=== PATIENT | female | born 1975 | race Hispanic/Latino ===

== ENCOUNTER 2016-07-19 05:51 | Day surgery (SDC) | payer SELFPAY ==
[~2016-07-19] VITALS: Ht 160 cm; Wt 82.5 kg
[2016-07-19] VITALS (17 sets, daily range): BP systolic 102–140; BP diastolic 62–167; PULSE 91–132; RESP 13–21; O2SAT 96–98
[~2016-07-19 05:51] MED LIST: CHOL200025 PO; Lactated Ringer's 1,000 ML IV SCH; METH10TA4 PO; RANI150C4 PO
[2016-07-19] MEDS ORDERED: Succinylcholine Chloride 20 mg/mL 5 mL Inj ONE (05:52)
[2016-07-19] MEDS ORDERED: Labetalol 5 mg/mL 20 mL Inj ONE (05:52)
[2016-07-19] MEDS ORDERED: Dexamethasone 4 mg/mL Inj ONE (05:52)
[2016-07-19] MEDS ORDERED: Glycopyrrolate 0.2 MG/ML 1mL Inj ONE (05:52)
[2016-07-19] MEDS ORDERED: Neostigmine 1 mg/mL 10 mL Inj ONE (05:52)
[2016-07-19] MEDS ORDERED: Propofol 10,000 mCg/mL 20 mL Inj ONE (05:52)
[2016-07-19] MEDS ORDERED: Ondansetron 2 mg/mL 2 mL Inj ONE (05:52)
[2016-07-19] MEDS ORDERED: fentaNYL-PF 50 mCg/mL 2 mL Inj ONE (05:52)
[2016-07-19] MEDS ORDERED: Phenazopyridine 97.5 mg Tablet PO SCH (06:00)
[2016-07-19] MEDS ORDERED: Lactated Ringer's 1,000 ML IV ONE ×3 (06:38→11:06)
[2016-07-19] MEDS ORDERED: MetoCLOpramide 5 mg/mL 2 mL Inj IVPUSH PRN ×2 (06:45→11:25)
[2016-07-19] MEDS ORDERED: Phenylephrine 10,000 mCg/mL Inj IVPUSH PRN (06:45)
[2016-07-19] MEDS ORDERED: EPHEDrine Sulfate 50 mg/mL Inj IVPUSH PRN (06:45)
[2016-07-19] MEDS ORDERED: Lactated Ringer's 500 ML IV PRN (06:45)
[2016-07-19] MEDS ORDERED: Lactated Ringer's 1,000 ML IV SCH ×2 (06:45→11:24)
[2016-07-19] MEDS ORDERED: Dexamethasone 4 mg/mL Inj IVPUSH PRN (06:45)
[2016-07-19] MEDS ORDERED: Ondansetron 2 mg/mL 2 mL Inj IVPUSH PRN ×2 (06:45→11:25)
--- NOTE | 2016-07-19 07:04 | PCM.HPANE ---
Patient Data Surgeon Admitting Provider: Attending Provider:Dejan Weeks MD Primary Care Physician:Ayde Posada MD Other Provider:Rachel Sharp Anesthesia Reason for Visit Uterovag Prolapse,Cystocele,Stress Incontinence Ht/WT & BMI Height (Feet): 4 Height (Inches): 9 Weight (Kilograms): 75.29 Body Mass Index 35.00 Allergies Coded Allergies: No Known Allergies (Unverified , 07/14/16) Past Anesthesia History Anesthesia History: Denies:: Anesthesia Reactions Diabetes History Hx Diabetes?: No MRSA MRSA: No Medications Home Meds Incl Beta Shiva: No Reported Medications Ranitidine 150 Mg [id number] Mg PO BID Ref 0 07/14/16 Cholecalciferol (Vitamin D3) (Vitamin D3)2,000 Unit Tablet2,000 Unit PO DAILY 07/14/16 Methimazole 10 Mg [id number] Mg PO TID 07/14/16 History History of ENT Problems?: No HEENT History: Denies:: Abnormal Airway Cataracts Difficult Intubation Dysphagia Glaucoma Hearing Problem Sinus Problem TMJ Denture Type: None Teeth Condition: Within Normal Limits Hx of Heart Problems?: No Cardiovascular History: Denies:: AICD Abdominal Aortic Aneurism Atrial Fibrillation Cardiac Surgery Chest Pain Congestive Heart Failure Coronary Artery Disease Edema Heart Murmur Hypertension Irregular Heartbeat Pacemaker Peripheral Vascular Rheumatic Fever Thrombophlebitis Valvular Heart Disease Hx of Respiratory Problem?: No Respiratory History: Denies:: Asthma COPD Chest Surgery Cough Dyspnea Emphysema Hemoptysis Oxygen Administration Pneumonia Pulmonary Embolism Tuberculosis Use of C-PAP Machine Use of Inhalers / NEBS Hx Neurologic Problems?: No Neurological History: Denies:: Alzheimer's Disease CVA Dementia Dizziness Headaches Multiple Sclerosis Parkinson's Disease Peripheral Neuropathy Seizures TIA Hx of GI Problems?: Yes Gastrointestinal History: Positive for:: Gastroesphageal Reflux Denies:: Cirrhosis Diverticulitis Gall Bladder Disease Gastrointestinal Bleeding Heartburn Hepatitis Hiatal Hernia Liver Disease Rectal Bleeding Hx of Problems?: Yes Genitourinary History: Denies:: HX of Hemodialysis Kidney Stones Urinary Tract Infection Female Hx: Denies:: Currently (hx tubal ligation) Problems with Breasts? Hx Musculoskeletal Problems?: No Musculoskeletal History: Denies:: Back Injury Degenerative Joint Fibromyalgia Joint Replacement Musculoskeletal Trauma Myasthenia Gravis Osteoarthritis Rheumatoid Arthritis Systemic Lupus Hx of Psycho/Social Problems?: No Psycho Social History: Denies:: Anxiety Bipolar Disorder Hx Depression Suicide Attempt Hx Surgeries?: Yes (LIH, tubal, c sections x 2) Hx Any Other Health Problems?: Yes Other History: Positive for:: Thyroid Disease Denies:: Cancer Hx Diabetes: No Hx Alcohol Use: NoHx Substance Use: NoHave You Smoked inLast 12 mo: No Stop/Bang P-Blood Pressure: treated: No B- Body Mass Index > 35 kg/m2: Yes A- Age over 50: No N- Neck Large Circumference: No G- Gender Male: No Risk Assessment Category Category 1A: Patient has history of documented sleep apnea, and HAS NOT received any narcotic, sedative or anesthesia administration during this stay. Category 1B: Patient has history of documented sleep apnea, and HAS received any narcotic , sedative or anesthesia administration during this stay Category 2: Patient has SUSPECTED Obstructive Sleep Apnea, and HAS received any narcotic , sedative or anesthesia administration during this stay. Category 3: Patient has SUSPECTED Obstructive Sleep Apnea and HAS NOT received narcotic, sedative or anesthesia administration during this stay. Category 4: Outpatient in Procedural Areas with known sleep apnea or who screen positive for High Risk via the STOP/BANG questionnaire. Exam Exam Vital Signs Vital Signs Date Time Temp Pulse Resp B/P Pulse Ox O2 Delivery O2 Flow Rate FiO2 07/19/16 06:38 36.3 108 20 140/ 96 Room Air General Appearance: Alert, Oriented X3, Cooperative, No Acute Distress HEENT/AIRWAY: MP 2 Lungs: Clear to Auscultation, Normal Air Movement Heart: Exam Unremarkable, Regular Rate/Rhythm, No Murmurs/Rubs/Gallops Meds/Labs/Diagnostics Admission Meds Current Medications Lactated Ringer's (Lr) 1,000 ml @ ud STK-MED ONCE IV Last administered on 07/19t 06:38; Start 07/19/16 at 06:38; Stop 07/19/16 at 06:39; Status DC Plan Impression Patient chart reviewed, patient interviewed and anesthestic plan with risks, benefits, and alternatives discussed, and informed consent obtained. NPO per Anesth. Guidelines: Yes ASA Physical Status: ASA2 Mod Systemic Disease Anesthetic Support Modalities: Hemodynamic Monitoring Anesthetic Plan: GA Bene/Risks/Altern/Consents: Yes HP Complete Prior to Induction: Yes Stu Polk MD Jul 19, 2016 07:04
[2016-07-19] MEDS: CeFAZolin Inj 2 GM in IV Premix 1 EACH IV SCH ×2 (07:34→15:07)
[2016-07-19] MEDS ORDERED: Sodium Chloride LOK Flush 10 mL Syringe XX ONE (08:06)
[2016-07-19] MEDS ORDERED: Gentamicin 40 mg/mL 2 mL Inj IRRIGATION ONE ×2 (08:06→09:23)
[2016-07-19] MEDS ORDERED: Lidocaine 1%-Epi 1:100,000 20 mL Inj INFILTRATE ONE (08:06)
[2016-07-19] MEDS ORDERED: 0.9% Sodium Chloride 10 mL Inj IV ONE (09:28)
[2016-07-19] MEDS ORDERED: Lidocaine 1%/Epi 1:100,000 30 mL MDV INFILTRATE ONE (09:28)
[2016-07-19] MEDS: Lactated Ringer's 1,000 ML IV SCH ×2 (09:56→15:07)
[2016-07-19] MEDS ORDERED: Alum-Mag Hydrox-Simeth 30 mL Suspension PO PRN (11:25)
[2016-07-19] MEDS ORDERED: diphenhydrAMINE 25 mg Capsule PO PRN (11:25)
--- NOTE | 2016-07-19 11:35 | PCM.ANEP1 ---
Post Anesthesia Phase 1 PACU Phase 1 Assessment Date of Service: Jul 19, 2016 Vital Signs Vital Signs Date Time Temp Pulse Resp B/P Pulse Ox O2 Delivery O2 Flow Rate FiO2 07/19/16 06:38 36.3 108 20 140/ 96 Room Air Anesthetic Administered: GA Level of Alertness: Awake, talking LEMON's with Equal Strength: Yes Pain: Yes Nausea or Vomiting: No Cardiovascular Function and Hy: Yes Oxygen Delivery: Simple Mask Lungs: Clear to Auscultation, Normal Air Movement Dermatome Level: Full Sensation Complications: No Follow up Care: No Patient Instructions Provided: Yes Stu Polk MD Jul 19, 2016 11:35
[2016-07-19] MEDS: fentaNYL-PF 50 mCg/mL 2 mL Inj IVPUSH PRN ×3 (11:43→13:20)
[2016-07-19] MEDS: HYDROmorphone 1 mg/mL Inj IVPUSH PRN ×3 (12:00→12:44)
--- NOTE | 2016-07-19 12:09 | PCM.SURGOP ---
Surgical Operative Report Date of Service: Jul 19, 2016 Pre Operative Diagnosis 1. POPQ stage 2 anterior vaginal prolapse 2. POOQ stage 2 atpical (Uterovaginal) prolapse 3. Urodynamic stress incontinence Post Operative Diagnosis 1. POPQ stage 2 uterine prolapse/enterocele 2. POPQ stage 2 cystocele 3. deficient pubocervical/pubovesical fascia 4. Urodynamic stress incontinence Procedure: 1. vaginal hysterectomy with bilateral salpingectomy 2. anterior repair with Xenform graft augmentation. 3. high uterosacral ligament vaginal vault suspension and enterocele repair and 4. TVT-obturator sling and cystoscopy Surgeon and Auto Body Repair Teacher: Surgeon: Dejan Weeks MD Assistants: Ayde Posada MD Indication for Procedure Her assessment to date includes: 1. Cystocele, midline N81.11 (618.01): 2. Uterovaginal prolapse, incomplete N81.2 (618.2): 3. Urodynamic stress incontinence The patient is a candidate for surgical prolapse management in the form of:. vaginal hysterectomy. with bilateral salpingectomy anterior repair with possible biologic graft augmentation. high uterosacral ligament vaginal vault suspension and enterocele repair and TVT-obturator sling. The patient signed the consent form. She agreed with the risks, benefits, and alternatives to surgery. The risks included but not limited to recurrence or persistence of prolapse, recurrence of persistence of incontinence, development of voiding dysfunction, development of urinary urgency, urgency incontinence, frequency, and need for intermittent self-catheterization or prolonged indwelling catheterization, injury to other organs including bladder, bowel, nerves or blood vessels. Need for blood transfusion, need for temporary colostomy or urinary stenting. Development of vaginal scarring, dyspareunia, defecatory dysfunction, recurring pain, hematoma formation, urinary tract infection, cellulitis, necrotizing fascitis, and medical risks including myocardial infarction, stroke or VTE. She also understood the FDA warnings associated with the use of vaginal mesh (dysparunia, vaginal erosion, erosion into bowel/bladder/urethra, requiring further surgery to correct these complications). Findings: see dictation Procedure Details SURGICAL TECHNIQUE: The patient was brought to the operating room and was placed under general anesthesia. She was prepped and draped in the normal fashion for vaginal surgery with the legs in Yellofin stirrups. She was given a dose of IV anceg intraoperatively. She also received 200 mg of oral pyridium in the preoperative area. 1. Vaginal Hysterectomy and bilateral salpingectomy: Lidocaine 0.5% with 1:200,000 of epinephrine was infiltrated pericervically. A pericervical incision was made with a scalpel. Anteriorly, the bladder was sharply dissected off the cervix. Posteriorly, the cul de sac was entered with Sharp dissection. The bowels were packed with a mini-laparotomy sponge. The uterosacral ligaments were bilaterally clamped, divided and then tied in a transfixion fashion with 0- vicryl suture. Anteriorly, the Uterovesical peritoneum was entered with sharp dissection and the bladder was retracted upward with a right-angle retractor. The uterus was normal in size. The uterine vessels with the utero- ovarian vessels were then clamped, and coagulated then cut with the LigOrtho-tag Impact system. The uterus and cervix was sent to pathology. The ovaries and tubes appeared normal. We left the ovaries intact. However she agreed to have a bilateral salpingectomy. The tubes were freed from their attachments using cautery, then clamped at their base and excised with scissors. The base was tied with 0-vicryl suture. The tubes were sent to pathology. Bleeding bilaterally along the pedicles were controlled with 2-0 Vicryl suture. There were no adhesions noted in the distal pelvis. 2. High uterosacral ligament vaginal vault suspension, cystoscopy and enterocele repair: Mini laparotomy sponges were packed to retract the bowel upwards. A pair of Allis clamps were placed along the intraperitoneal portions of the vagina at the 5 and 7 o'clock positions. Tension along these Allis clamps allowed for identification of the uterosacral ligaments bilaterally. A pair of 0 Vicryl sutures were passed around the uterosacral ligaments of the level of the ischial spine bilaterally, totalling 4. Cystoscopy was performed. The bladder was filled with 200 ml of D50 as the pyridium had not concentrated in the urine yet. While tension was placed along the uterosacral ligament sutures, spillage of urine was noted at both ureteric orifices. The bladder was emptied and rinsed with sterile saline. Next, two 3-0 Prolene sutures were placed transversely through the cul-de-sac peritoneum. This was performed while using a gloved finger in the rectum as to avoid penetrating the underlying rectal mucosa. Tying these sutures obliterated the enterocele. 3. Anterior colporrhaphy with Xenform graft augmentation: Lidocaine 0.5% with 1 /[id number] epinephrine was infiltrated along the anterior vaginal wall mucosa. A midline vertical incision was made through the anterior vaginal wall. The vaginal wall was dissected off the underlying pubocervical and pubovesical fascia. The dissection was extended laterally beyond the ischial pubic rami. It was noted that the pubocervical and pubovesical fascial tissues were deficient and thin. Bilateral paravaginal defects were identified. The cystocele was plicated 2 layers, the first layer with 2-0 Vicryl suture in interrupted fashion, the second layer with 2-0 Tycron suture in an interrupted fashion. A trapezoidal piece of Xenform graft was then incorporated atop the plicated area far laterally. The graft was secured to the obturator internus membrane. At the level of the bladder neck, an upside down triangular piece of graft was excised so that there was no over-support created along the level of the bladder neck. Apically , the graft was passed through the proximal uterosacral ligament sutures. A mild amount of excess anterior vaginal mucosa was excised. A small piece of gelfoam was placed in the cul-de- sac to achieve hemostasis in this area. The vault suspension sutures were then passed through the planned apex of the vagina. Two were placed through the anterior apex and the other two, through the posterior apex. The vagina was then reapproximated using 3-0 Vicryl suture in a running-locked fashion. The perineum was reapproximated using 2-0 Vicryl suture in an interrupted fashion. The skin was reapproximated using 3-0 Vicryl suture in a subcuticular fashion. The high uterosacral ligament vaginal vault suspension sutures were tied and this elevated the apex of the vagina high up into the hollow of the sacrum. A digital rectal exam revealed that the posterior segment was well supported, especially after apical suspension. 4. TVT-Obturator sling and cystoscopy. Lidocaine 0.5% with 1/551013 epinephrine was infiltrated along the anterior vaginal wall mucosa at the level of the mid urethra. Midline vertical incision was made at that level, 2 periurethral tunnels were created with Metzenbaum scissors. Two stab incisions were created at the skin at the groin at a level 2 cm superior to the external urethral meatus and 2 cm lateral to the fold created between the vulva and thigh. Goldman catheter had already been inserted. A butterfly guide was inserted into the right periurethral tunnel, a curved helical needle was inserted on top of the guide and rotated out to the ipsilateral skin incision. The same procedure was performed on the contralateral side. Next the Goldman catheter was removed. Cystoscopy was performed. There was no inadvertent penetration of the sling to the vagina, urethra or bladder. The bladder appeared normal. Both ureteric orifices were noted and brisk spillage of pyridium-stained urine was noted effluxing bilaterally. The plastic sheaths of the sling were removed. The bladder was filled with 300 mL of sterile water. Using the Crede maneuver, sling tension was appropriately adjusted. Also a thick right angle clamp was allowed to easily pass behind the sling so that the sling was placed in a tension-free manner. The sling ends were cut at the level of the skin. The skin was reapproximated using Mastisol, Steri-Strips and band-aids. The vagina was reapproximated using 3-0 Vicryl suture in a running fashion. The vagina was packed with KY-lubricated packing. An 16F indwelling goldman catheter was connected to straight drainage. The patient's hips were periodically deflexed during the case. There were no complications. The EBL was 350 ml. All sponges and instruments were accounted for. She was taken to the recovery room in stable condition. Complications There were no periprocedural complications identified. Surgical Specimen Removed: Yes Specimen sent to Pathology: Yes Surgical Specimen description: uterus, cervix, and tubes x 2 Anesthetic Plan: GA Grafts, Implants: Grafts-See Implant Record, Implants-See Implant Record Output, Estimated Blood Loss: 350 (ml) Blood Administration during langford: No Catheters: Urethral 2 Way Goldman Post Operative Plan overnight stay in bed as she requires a voiding trial in the am copies to: Ayde Posada MD; Dejan Weeks MD, William Andre Z MD Jul 19, 2016 12:09
--- NOTE | 2016-07-19 15:09 | NUR ---
Post op Arrived to [facility] room 1006 via stretcher at 14:10. Slightly drowsy, but awake and oriented. Family at bedside. Manager Web Application present. Complains of vague abd pain. Denies nausea. 2 bandaids and peripad CDI. Tachy 110s-120; HR was 108 preop. 500 cc bolus given in PACU per report. Oriented to room and call light.
[2016-07-19] MEDS: oxyCODONE-Acetamin 5-325 mg Tablet PO PRN ×2 (16:02→20:59)
--- NOTE | 2016-07-19 16:32 | NUR ---
Tachy HR 120-130. Face flushed. paged. Orders to increase methimazole dose, EKG, labs. Methimazole given, EKG done and results phoned to . Labs pending. Continue to monitor.
[2016-07-19] MEDS ORDERED: Acetaminophen IV 1,000 MG in IV Premix 1 EACH IV ONE (17:15)
[2016-07-19 17:41] LABS: BASOPHILS % (AUTO) 0.1 % (0-3); EOSINOPHILS % (AUTO) 0 % (0-5); MONOCYTES % (AUTO) 3.5 % (4-12); Mean Corpuscular Hemoglobin 25.4 pg (27.0-35.0); NEUTROPHILS % (AUTO) 87.1 % (40-74); Platelet Count 211 bil/L (150-400)
[2016-07-19] MEDS ORDERED: Benzocaine-Menthol Lozenge 2/Pkg PO PRN (19:00)
[2016-07-19] MEDS ORDERED: HYDROmorphone 1 mg/mL Inj IM ONE (19:10)
[2016-07-19] MEDS ORDERED: MeTOProlol 1 mg/mL 5 mL Inj IVPUSH ONE (19:30)
--- NOTE | 2016-07-19 19:32 | PCM.CHPMED ---
Subjective Date of Service: Jul 19, 2016 Provider requesting consult: Dejan Weeks MD Primary Physician: Admitting Physician: Primary Care Physician: Ayde Posada MD Attending Physician: Dejan Weeks MD Chief Complaint: Chief Complaint: Hypertension and tachycardia PMH Allergies: Coded Allergies: No Known Allergies (Unverified , 07/14/16) Social History Hx Alcohol Use: NoHx Substance Use: No Exam Vital Signs Vital Sign - Last Date Time Temp Pulse Resp B/P Pulse Ox O2 Delivery O2 Flow Rate FiO2 07/19/16 17:10 36.5 127 20 115/167 97 Nasal Cannula 2.00 Lab and Diagnostics Result Diagram: 07/19/16 1730 07/19/16 1730 Assessment & Plan Assessment HPI: Patient is a 41-year-old Kyrgyz-speaking female with a past medical history of hyperthyroidism and GERD who presented for surgery for Uterovag Prolapse,Cystocele,Stress Incontinence. However status post surgery the patient had an elevated blood pressure of 115/167 and a heart rate of 127. The patient generally takes methimazole 10 mg by mouth 3 times a day however was given 20 mg by mouth every [address] Weeks. At that time Dr. Weeks contacted the hospitalist team for consult. The patient's blood pressure is currently 123/80 with a heart rate of 131. Patient is currently diaphoretic and complaints of low back pain, vaginal pain, abdominal pain, and sore throat. Home medications: Methimazole 10 mg 3 by mouth times a day Ranitidine 150 mg by mouth twice a day Vitamin D3 2000 international units by mouth daily Allergies: None PMHx: Hyperthyroidism GERD SHx: Vaginal hysterectomy with bilateral salpingectomy (07/19/16) Anterior repair with Xenform graft augmentation. (07/19/16) High uterosacral ligament vaginal vault suspension and enterocele repair and Obturator sling and cystoscopy(07/19/16) Hernia surgery x 2 FHx: Family history of hypertension SocHx: Tobacco history: Patient denies Alcohol use: Patient denies Drug use: Patient denies ROS: A complete review of systems was performed or attempted to be performed. Please see HPI for pertinent positives, all other systems are negatives. Physical Exam: GEN: Patient was awake, alert, responding appropriately to questions, moderate distress HEENT: Pupils equal round and reactive to light, extraocular eye muscles intact , Neck soft supple, trachea midline, nomocephalic/atraumatic CV: +S1/S2, regular rate and rhythm, no murmurs auscultated Respiratory: CTAB, no wheezes, rales, rhonchi GI: +bowel sounds x4, soft, compressible, tender to palpation Muscular skeletal: Paraspinal hypertonicity on the right L1 to L5 EXT: no clubbing, cyanosis, edema Neuro: Cranial nerves II-XII grossly intact Psych: mood and affect were appropriate Assessment and Plan 41-year-old female with a past medical history of hyperthyroidism with hypertension and tachycardia Hyperthyroidism -Continue methimazole 10 mg 3 times a day -Follow up TSH and free T4-T3 -Consult endocrinology (Mandeep Uriarte) in the morning Hypertension controlled -Current blood pressure is 123/80 -Continue to monitor Tachycardia -Current heart rate is 131 -Control patient's pain IV Tylenol, Dilaudid 1 time dose, IV morphine -1 time dose of 5 mg of Lopressor Hyponatremia -Sodium is currently 132 -Stop lactated Ringer's and start normal saline at 125 an hour -Continue to monitor Pharyngitis (Mostly we secondary to intubation) -Cepacol throat lozenges -Continue oral hydration Code Status: Full code Disposition: Patient blood pressure is now currently controlled and there is thought that the patient's blood pressure was significantly elevated with an elevated tachycardia secondary to the patient's current hyperthyroidism. Patient's heart rate is still elevated we will give her a one-time dose of Lopressor however controlling the patient's pain will also help to bring the patient's heart rate down as well. Problems: Resuscitation Status: CPR: Attempt Resuscitation Time spent Greater than 45 minutes Angela Gilliland DO Jul 19, 2016 19:32
--- NOTE | 2016-07-19 19:49 | PCM.CHPMED ---
Subjective Date of Service: Jul 19, 2016 Provider requesting consult: Angela Gilliland DO Primary Physician: Admitting Physician: Primary Care Physician: Ayde Posada MD Attending Physician: Dejan Weeks MD Chief Complaint: Chief Complaint: Endocrinology Consult: Asked by Dr. Gilliland to evaluate this 41-year-old woman status post hysterectomy today with a history of hyperthyroidism. History of Present Illness: The patient is Prydein[place]-speaking and was interviewed with the assistance of Spanish-speaking family members. She presented today for elective hysterectomy , and is noted to be clinically and biochemically hyperthyroid. She reports a three-year history of hyperthyroidism. She does not know the etiology and did not recognize the name of Graves' disease. She has been treated medically with methimazole and a "heart medication" which may be propranolol. She states that her methimazole dose has been as low as 1 tablet per day (10 mg) and as high as 3 tablets per day. On review of systems she reports episodes of diaphoresis, palpitation over several months. She has hot and cold intolerance and equal measure. Her weight has been up and down but generally stable. She does not notice tremors. She denies symptomatic ophthalmopathy. She feels that her neck is swollen but does not experience dysphagia. Her bowels are regular. Currently she is in moderate discomfort at her postsurgical site. PMH Past Medical History # Hyperthyroidism # Dyspepsia or GERD # Uterine prolapse with urinary incontinence Hx Any Other Health Problems?: NoHx Diabetes: No Allergies: Coded Allergies: No Known Allergies (Unverified , 07/14/16) Family History Family History Hypertension, no thyroid disease. Social History Hx Alcohol Use: NoHx Substance Use: No Exam Vital Signs Vital Sign - Last Date Time Temp Pulse Resp B/P Pulse Ox O2 Delivery O2 Flow Rate FiO2 07/19/16 17:10 36.5 127 20 115/167 97 Nasal Cannula 2.00 General: middle-aged woman in mild distress HEENT: sclerae anicteric, oral mucosa moist, sclerae are moderately injected, no obvious proptosis Neck: no JVD; she is unable to sit up for proper thyroid exam but thyroid is bilaterally enlarged with a smooth texture; radiated murmur versus possible thyroid bruit Chest: clear to auscultation Cardiac: Hyperdynamic, tachycardic S1S2, II/ systolic murmur at LUSB Abdomen: BS diminished, tender in lower quadrants Extremities: No pitting pedal edema Skin: Plethoric and diaphoretic Neuro: A&O, cranial nerves symmetric, no lid lag or stare, motor strength 5/5, coordination normal, minimal tremor, reflexes are 2+ with accelerated relaxation Lab and Diagnostics Labs Thyroid function studies: 07/17/16 TSH 0.005 (0.45-4.5) 07/19/16 Free T4 2 0.8 (0.82-1.77) Result Diagram: 07/19/16 1730 07/19/16 1730 12-lead ECG 07/19/16 16:40 sinus tachycardia rate 125. Conduction intervals normal. Assessment & Plan Assessment Patient has long-standing hyperthyroidism, most likely Graves' disease. He is currently in a postoperative state with pain and possible fluid shifts, experiencing sinus tachycardia. This may be compounded by recent discontinuation of her beta alyse. She reports good compliance with methimazole 10 mg three times a day recently, which seems inconsistent with her very elevated T4 level. I suspect that recent medication compliance may have been imperfect, as hyperthyroidism is usually well controlled by methimazole 10 mg 3 times a day. Current clinical problem will be interpretation of her tachycardia with respect to fluid status versus hyperthyroidism. I believe she needs significant doses of propranolol. Her current dose of methimazole is maximal but will take several days, at minimum, to be effective. She has a stable blood pressure; hence thyroid storm is not in the differential. Tachycardia is sinus and there is no significant risk of arrhythmia and healthy younger patients with hyperthyroidism. Recommendations: #1. Propranolol 20 mg 4 times a day, increase to 40 mg 4 times a day for persistent tachycardia greater than 120 bpm #2. Continue methimazole 20 mg 3 times a day at present, likely to reduce this to 10 mg 3 times a day at time of discharge. #3. I will order a thyroid-stimulating immunoglobulin test. No need for other thyroid blood tests at this time. No need for ultrasound or nuclear scan at this time. #4. Refer to me at [facility] for follow-up after discharge to discuss long-term methimazole versus radioiodine treatment Thank you for this interesting and timely consult. I will continue to see the patient daily while she is admitted. Please contact me with any questions . Problems: VTE Mechanical Devices: Intermittant Pneumatic CD Resuscitation Status: CPR: Attempt Resuscitation Kamari Uriarte MD Jul 19, 2016 19:49
[2016-07-19] MEDS: 0.9% Sodium Chloride 1,000 ML IV SCH (20:01)
[2016-07-19 20:04] LABS: Magnesium 1.7 mg/dL (1.6-2.6)
[2016-07-19] MEDS ORDERED: Non-Formulary Medication (Ranitidine 150 MG) PO SCH (20:30)
--- NOTE | 2016-07-19 22:40 | NUR ---
TACHYCARDIA: Pt's pulse was still running 120-130s post op. Dr. Uriarte came in to see pt. new orders for Metoprolol 5 mg IV one time dose, given. Then Propranolol 20 mg po QID, all done as ordered. Pt's pulse is improving. Rate is 110 to 116 at rest. Pt. is on a Cont. pulse oxymetry. Also Pt. was given one time order of IV Dilaudid 1 mg, brought down pain for 12/10 to 07/10 Pt. states that she is feeling better now. Nausea is resolved with Reglan given by previous RN Maureen. Given 2 Percocet for pain 08/09, pt. tolerating well, brought down pain to 04/11. Santiago catheter draining to gravity orange colored urine. 2250 ml at this time, no blood clots seen. Pt. is A & O, taking po fluids and tolerating well. On going care.
[2016-07-20 00:24] VITALS: BP 114/74; PULSE 112; RESP 18; O2SAT 97
--- NOTE | 2016-07-20 03:29 | NUR ---
ITCHING: Pt. stated her back was very itchy after getting her Morphine for pain. Given 25 mg of IV Benadryl.
[2016-07-20] MEDS: 0.9% Sodium Chloride 1,000 ML IV SCH ×2 (04:24→11:35)
[2016-07-20 05:37] LABS: BASOPHILS % (AUTO) 0.1 % (0-3); EOSINOPHILS % (AUTO) 0.5 % (0-5); MONOCYTES % (AUTO) 11.4 % (4-12); Mean Corpuscular Hemoglobin 25.8 pg (27.0-35.0); Mean Corpuscular Volume 78.3 fL (81-100); NEUTROPHILS % (AUTO) 68.8 % (40-74); Platelet Count 214 bil/L (150-400)
[2016-07-20 05:51] VITALS: BP 106/68; PULSE 84; RESP 17; O2SAT 98
[2016-07-20] MEDS: oxyCODONE-Acetamin 5-325 mg Tablet PO PRN ×3 (06:04→18:00)
[2016-07-20 07:33] VITALS: BP 110/77; PULSE 82; RESP 17; O2SAT 97
[2016-07-20] MEDS ORDERED: Senna-Docusate 8.6-50 mg Tablet PO SCH (08:30)
[2016-07-20] MEDS ORDERED: Heparin 5,000 Unit/mL Inj SUBQ SCH (08:30)
--- NOTE | 2016-07-20 09:31 | PCM.PNSURG ---
Subjective Date of Service: Jul 20, 2016 Date of Service: Jul 20, 2016 Visit Information: Reason for Visit Uterovag Prolapse,Cystocele,Stress Incontinence Surgery/Surgery Date vaginal hysterectomy 07/19/16 Post-Op Day # 1 Subjective: AVSS Pt seen by hospitalist and endocrinology last pm due to sinus tachcardia and uncontrolled hyperthyroidism Pt started on B-alyse and doubled the dose of methimazole currently HR is stable (80's), BP stable, no fever, no signs of thyroid storm amulating tolerating po pain control ok Gastrointestinal: Good Appetite Pain Management: PO Objective Vital Sign- Last 8 Hours Date Time Temp Pulse Resp B/P Pulse Ox O2 Delivery O2 Flow Rate FiO2 07/20/16 07:33 37.3 82 17 110/77 97 Nasal Cannula 2.00 07/20/16 05:51 36.7 84 17 106/68 98 Nasal Cannula 2.00 07/20/16 05:07 Supplement Oxygen Intake and Output- Last 8 Hour 07/20/16 Cumulative From/Thru 07:00 07/14/16 12:23 - 07/20/16 05:51 Intake Total 3465 ml 7555 ml Output Total 3300 ml 4450 ml Balance 165 ml 3105 ml Intake Oral 1600 ml 2040 ml IV Total 1865 ml 5515 ml Output Urine Total 3250 ml 3700 ml Emesis 50 ml 50 ml Estimated Blood Loss 700 ml # Bowel Movements 0 0 General: Alert, Oriented X3, Cooperative Lungs: Clear to Auscultation Abdomen: Soft Catheters: Urethral 2 Way Goldman Result Diagram: 07/20/16 0453 07/20/16 0453 Assessment & Plan Impression 1, Uncontrolled hyperthyroidism 2. sinus tachycardia; now normal HR in 80's with use of beta alyse 3. Stable for discharge later today Problems: Plan voiding trial at 10 am discharge later today will need f/u with GP or endocrinology regarding further hyperthyroidism treatment f/u with Dr. Weeks in 2 wk (also 1 wk with his MA if home with goldman) Resuscitation Status: CPR: Attempt Resuscitation copies to: Dejan Weeks MD, William Andre Z MD Jul 20, 2016 09:31
--- NOTE | 2016-07-20 09:34 | PCM.DIGYN ---
Surgical Discharge Instruction Dates of Hospitalization Date of Hospital Admission outpatient in bed with overnight stay 07/19/16 to 07/20/16 Providers Admitting Physician: Primary Care Physician: Ayde Posada MD Attending Physician: Dejan Weeks MD Diagnosis at Time of Discharge Diagnosis at time of discharge 1. POPQ stage 2 uterine prolapse/enterocele 2. POPQ stage 2 cystocele 3. deficient pubocervical/pubovesical fascia 4. Urodynamic stress incontinence 5. Uncontrolled hyperthyroidism Post-operative diagnosis 1. POPQ stage 2 uterine prolapse/enterocele 2. POPQ stage 2 cystocele 3. deficient pubocervical/pubovesical fascia 4. Urodynamic stress incontinence Problems: Diet Discharge Diet: No restrictions Activity Discharge Activity-General: Restrict lifting to no greater than (10 lbs for 6 wk) Dressing and Incisional Care Dressing Care: Allow Steri Stripes to fall off Hygiene: May shower Follow Up Plan Follow-up appointment: Weeks ([address]eks; also f/u with his MA in 1 wk if home with goldman. She also needs to f/u with Dr. Uriarte the hourly shift manager in 2 wk) Call your provider for: Fever, Chills, Shortness of breath, Vomitting, Drainage at incision, Heavy vaginal bleeding, Wound redness, Increasing pain Dejan Weeks MD Jul 20, 2016 09:34
[2016-07-20] MEDS ORDERED: PROP80CA2 PO (09:52)
[2016-07-20 11:25] VITALS: BP 103/66; PULSE 89
[2016-07-20 12:40] VITALS: BP 106/64; PULSE 78; RESP 18; O2SAT 93
--- NOTE | 2016-07-20 18:25 | NUR ---
MD NOTIFICATION/DISCHARGE Care obtained from Maureen Ta at 1335. Percocet 2 tabs PO has been effective for pain control. Ibuprofen administered. She complained of nausea after taking her Ibuprofen without food. Zofran IV administered. No emesis noted. Patient made aware RE: Taking her meds with food. She verbalized understanding. Tolerating liquids PO and her diet well. No issues noted. Denies SOB. Patient passed her voiding trial per report from Maureen Ta RN. This afternoon patient had difficulty in voiding. PVR checked X 2= 637 and 847 ml noted. Bandaid dressing in her groin area is CDI. Taty pad has scant amount of blood noted. Dr. Weeks updated RE: Patients progress. Per protocol re-insert IFC and patient is cleared to D/C to home per Dr. Weeks. Per MD she is to follow up in the [place] office for a voiding trial in 1 week. Orders has been finalized in the computer. IV saline lock d/cd. IFC care and teaching was given to the patient and her . They both verbalized understanding. Discharge instructions, care notes and prescription was given to the patient and she verbalized understanding. Discharged to home with her and all her personal belongings. Tank Stave Assembler was at the bedside at all times during the catheter insertion and discharge. (Copy of D/C is in the chart).
--- NOTE | 2016-07-21 13:59 | PATH ---
SURGICAL PATHOLOGY Attending Physician:Dejan Weeks, CASE STATUS: Signed Out PATIENT NAME: GIOVANNI CHAWLA PID: [id number] : 1975 DATE COLLECTED:07/19/2016 21:11 SPECIMEN: 1: Uterus +/- tubes/ovaries, except neoplastic, prolapse 2: Fallopian Tube, Biopsy CLINICAL HISTORY: UTEROVAG PROLAPSE, CYSTOCELE, STRESS INCONTINENCE 1). UTERUS AND LEFT FALLOPIAN TUBE 2). RIGHT FALLOPIAN TUBE FINAL DIAGNOSIS: 1.UTERUS WITH LEFT FALLOPIAN TUBE (CLINICAL PROLAPSE): PROLIFERATIVE ENDOMETRIUM, NEGATIVE FOR ATYPIA. FALLOPIAN TUBE UNREMARKABLE. 2.RIGHT FALLOPIAN TUBE: NO SIGNIFICANT PATHOLOGIC CHANGE. ICD10 CODE N81.4 GROSS DESCRIPTION: The specimens are received in formalin, labeled with the patient's name, and sublabeled as the following: (1) uterus and left fallopian tube; (2) right fallopian tube. (1) The specimen consists of a uterus (103 g, 4.5 cm AP, 8.9 cm SI, 5.7cm ML) and a detached fimbriated fallopian tube (length-3.7 cm, diameter-0.6 cm). The ovaries and second fallopian tube are absent. The cervix (2.5 cm AP, 3.0 cm ML) has a vaginal cuff (up to 2.2 cm in depth), transverse os and patent endocervical canal. The endometrium (average thickness-0.2 cm) is gold-pink smooth and flat. The myometrium (thickness-2.0 cm) is gold and unremarkable. The serosa is gold smooth and shiny. The fallopian tube has dark brown smooth shiny serosa and a gold unremarkable lumen. Section code: (1A) anterior cervix; (1B-1C) posterior cervix, bisected and submitted SI; (1D, 1E) anterior endomyometrium; (1F, 1G) posterior endomyometrium; (1H) fallopian tube, serially sectioned, contact center representative; (1I) fimbria, bivalved, entirely submitted. (2) The specimen consists of a fimbriated fallopian tube segment (length-1.5 cm, diameter-0.5 cm). The serosa is dark brown smooth and shiny. The lumen is gold and unremarkable. Section code: (2A) fallopian tube, serially sectioned; (2B) fimbria, bivalved. Specimen entirely submitted. 07/20/16 MICRO DESCRIPTION: See diagnosis. ICD-9 CODES: CPT CODES: 1: 44652 2: 16246 Electronically Signed Out Oliver Reynolds MD [facility] [address], [place] [address] Technical component performed at [facility], [address], [place], [address]
--- NOTE | 2016-07-27 17:46 | PCM.PNMED ---
Subjective Date of Service Jul 20, 2016 Subjective Pt denies fevers, chills, pain is well controlled. no palpitations, dyspnea, or chest pain. Denies poor appetite. Exam Vital Signs Vital Sign - Last Date Time Temp Pulse Resp B/P Pulse Ox O2 Delivery O2 Flow Rate FiO2 07/20/16 07:33 37.3 82 17 110/77 97 Nasal Cannula 2.00 Intake and Output 07/19/16 07/19/16 07/20/16 Cumulative From/Thru 15:00 23:00 07:00 07/14/16 12:23 - 07/20/16 05:51 Intake Total 3650 ml 440 ml 3465 ml 7555 ml Output Total 1150 ml 0 ml 3300 ml 4450 ml Balance 2500 ml 440 ml 165 ml 3105 ml Intake Oral 440 ml 1600 ml 2040 ml IV Total 3650 ml 1865 ml 5515 ml Output Urine Total 450 ml 0 ml 3250 ml 3700 ml Emesis 50 ml 50 ml Estimated Blood Loss 700 ml 700 ml # Bowel Movements 0 0 Exam heart, lungs, ext, abd exam General: NAD, laying in bed, pleasant HEENT: NCAT Eyes: [place] conjunctivae. No ptosis Neck: No masses, trachea midline, no thyromegaly Lungs: CTA with normal respiratory effort, no crackles or wheezes CV: RRR, no murmurs/rubs/gallops, normal PMI GI: Soft, midly-tender with no hepatosplenomegaly MSK: no digital cyanosis Skin: Warm and dry. Psych: A&O X3, with appropriate affect Neuro: No focal deficits IVs and Medications Medications Reviewed: Medications were reviewed in detail Lab and Diagnostics Result Diagram: 07/20/16 0453 07/20/16 0453 Assessment & Plan Impression 1, Uncontrolled hyperthyroidism: Dr. Uriarte from Endocrinology was consulted, we appreciate his recommendations. He wants her back on her home methimazole plus propranolol 120 ER for discharge. 2. sinus tachycardia; now normal HR in 80's with use of beta alyse 3. Stable for discharge later today: communicated d/c meds and f/u with Dr. Uriarte to Dr. Weeks as he is the primary team doing the discharge. Patient wants a Mon appt in 2 weeks (he asked for a 2 week f/u) Problems: Plan voiding trial at 10 am discharge later today will need f/u with GP or endocrinology regarding further hyperthyroidism treatment f/u with Dr. Weeks in 2 wk (also 1 wk with his MA if home with goldman) Resuscitation Status: CPR: Attempt Resuscitation Pain Evaluation: Adequate Pain Control VTE Mechanical Devices: Intermittant Pneumatic CD Resuscitation Status: CPR: Attempt Resuscitation Nenita Riddle DO Jul 20, 2016 08:29
== END 2016-07-20 18:32 | disposition home or self-care (01) ==
LOC: SAS 05:51 → OSC 14:11 → SAS 07-20 18:32
PROVIDERS: ATTEND Obstetrics & Gynecology
PROC: 0UTC7ZZ Resection of Cervix, Via Natural or Artificial Opening (ICD-10-PCS; 2016-07-19)
PROC: 0UT77ZZ Resection of Bilateral Fallopian Tubes, Via Natural or Artificial Opening (ICD-10-PCS; 2016-07-19)
PROC: 0JUC0KZ Supplement of Pelvic Region Subcutaneous Tissue and Fascia with Nonautologous Tissue Substitute, Open Approach (ICD-10-PCS; 2016-07-19)
PROC: 0TSD0ZZ Reposition Urethra, Open Approach (ICD-10-PCS; 2016-07-19)
PROC: 0USG0ZZ Reposition Vagina, Open Approach (ICD-10-PCS; 2016-07-19)
PROC: 0UT97ZZ Resection of Uterus, Via Natural or Artificial Opening (ICD-10-PCS; principal; 2016-07-19 07:30)
DX: N81.2 Incomplete uterovaginal prolapse (principal); N81.11 Cystocele, midline; N39.3 Stress incontinence (female) (male); R39.14 Feeling of incomplete bladder emptying; I10 Essential (primary) hypertension; R00.0 Tachycardia, unspecified; K21.9 Gastro-esophageal reflux disease without esophagitis; Z87.440 Personal history of urinary (tract) infections; N30.30 Trigonitis without hematuria; E83.59 Other disorders of calcium metabolism; E05.90 Thyrotoxicosis, unspecified without thyrotoxic crisis or storm; E87.1 Hypo-osmolality and hyponatremia; J02.9 Acute pharyngitis, unspecified
CPT/HCPCS: 36415; 57240; 57267; 57288; 58263; 80048; 80053; 83520; 83735; 84439; 84443; 84445; 84481; 85014; 85018; 85025; 93005; C1763; C1771; J0131; J0330; J0690; J1100; J1170; J1200; J1580; J1644; J2250; J2270; J2405; J2710; J2765; J3010; J7030; J7120